=== PATIENT | male | born 1980 | race Caucasian/White ===

== ENCOUNTER 2021-07-27 17:50 | Emergency (ER) | payer MEDICAID, SELFPAY ==
[2021-07-27] VITALS (14 sets, daily range): BP systolic 101–142; BP diastolic 63–81; PULSE 93–117; RESP 14–27; TEMP 37.8; O2SAT 97–100
--- NOTE | ~2021-07-27 | XR_ITS ---
XR chest 2V DATE: 07/27/2021 19:26 INDICATION: Fever. Diabetes. TECHNIQUE: AP and lateral views COMPARISON: None FINDINGS: Normal heart size. No hilar or mediastinal enlargement. No pulmonary infiltrate or consolid ation, pleural effusion or pulmonary vascular congestion or pneumothorax is detected. IMPRESSION: No active cardiopulmonary disease Reviewed, dictated and finalized at location A.
--- NOTE | ~2021-07-27 | XR_ITS ---
XR foot RT min 3V DATE: 07/27/2021 18:39 INDICATION: Pain, erythema of the great toe. Diabetes. TECHNIQUE: 4 views COMPARISON: None FINDINGS: There is osteopenia. No fracture, dislocation or periosteal reaction or bone destruction is evident. Three-phase radionuclide bone scan would be more sensitive for detection of osteomyelitis. IMPRESSION: Osteopenia Reviewed, dictated and finalized at location A. IMPRESSION: Osteopenia
--- NOTE | ~2021-07-27 | XR_ITS ---
XR foot LT min 3V DATE: 07/27/2021 18:39 INDICATION: Pain, swelling of great toe. Diabetes. TECHNIQUE: 4 views COMPARISON: None FINDINGS: There is diffuse osteopenia. There is slight plantar calcaneal enthesopathy and minimal distal Achilles tendon calcification. Anterior tibial and dorsalis pedis artery calcification. No fracture, dislocation, periosteal reaction or bone destruction is evident. If there is clinical concern for osteomyelitis, three-phase radionuclide bone scan would be more sens itive. IMPRESSION: Osteopenia Slight plantar calcaneal enthesopathy Minimal distal Achilles tendon calcification Arterial calcification Reviewed, dictated and finalized at location A.
--- NOTE | 2021-07-27 18:41 | ECG_ITS ---
Measurements Intervals [place] Rate: 112 P: [place]: 0 QRS: -5 QRSD: 100 T: 72 QT: 356 QTc: 487 Interpretive Statements SINUS TACHYCARDIA MINOR NONSPECIFIC ST CHANGE ABNORMAL RHYTHM ECG NO PREVIOUS ECG AVAILABLE FOR COMPARISON Electronically Signed On 07-27-2021 20:31:05 CDT by Brianne Olson M.D.
[2021-07-27] MEDS: SODIUM CHLORIDE 0.9% IV 1,000 ML 999 ML IV CONT ×2 (19:07→21:40)
[2021-07-27 19:28] LABS: Basophils Absolute Auto 0.1 K/mm3 (0.0-0.1); Basophils Percent Auto 0.3 % (0.2-1.2); Eosinophils Percent Auto 0.1 % (0-4.4); Hematocrit 30.2 % (42.0-52.0); Hemoglobin 9.3 g/dL (14.0-18.0); Immature Granulocyte Absolute 0.21 K/mm3 (0.00-0.031); Immature Granulocyte Percent A 0.9 % (0-0.5); Lymphocytes Absolute Auto 1.34 K/mm3 (0.9-3.2); Lymphocytes Percent Auto 5.4 % (18.3-44.2); Mean Corpuscular HGB Conc 30.8 g/dl (32-36); Mean Corpuscular Hemoglobin 30.4 pg (26-34); Mean Corpuscular Volume 98.7 fl (80-100); Mean Platelet Volume 9.9 fl (7.4-10.4); Monocytes Absolute Auto 1.6 K/mm3 (0.1-0.6); Monocytes Percent Auto 6.6 % (2.6-8.5); Neutrophils Absolute Auto 21.4 K/mm3 (1.3-6.7); Neutrophils Percent Auto 86.7 % (45.5-73.1); Platelet Count Result 565 k/mm3 (150-375); Red Blood Count 3.06 M/mm3 (4.6-6.20); Red Cell Distribution Width 12.5 % (11.5-14.5); White Blood Count 24.7 K/mm3 (4.5-10.0)
[2021-07-27 19:40] LABS: INR 1.2; Prothrombin Time 14.6 Seconds (11.1-14.7)
[2021-07-27 19:41] LABS: Partial Thromboplastin Time 39.5 SECONDS (22.3-36.8)
--- NOTE | 2021-07-27 19:47 | ED.EXTPRO ---
HPI - Extremity Problem General Chief complaint: Extremity Problem,Nontraumatic Stated complaint: my toe is purple Time Seen by Provider: 07/27/21 18:31 Source: patient Mode of arrival: ambulatory Limitations: no limitations History of Present Illness HPI Narrative: 40-year-old male with history of diabetes presents today with complaints of right great toe being purple. Patient states it was not like that yesterday at all. Patient states she woke up and it was like this. Bilateral great toes noted with wounds. Right great toe noted to be purple with foul-smelling odor. Streaking noted up right leg. Patient states his blood sugars stay around 180. Unknown last hemoglobin A1c. Patient denies fevers, body aches other than toe pain, chills. [place] here Temporarily. Related Data Allergies Allergy/AdvReac Type Severity Reaction Status Date / Time cefaclor [From [facility]] Allergy Unknown unknown Verified 07/27/21 18:49 Penicillins Allergy Unknown unknown Verified 07/27/21 18:49 Review of Systems Review of Systems: CONSTITUTIONAL: Denies fever, chills, or sweats. EYES: Denies visual changes, redness, or discharge. ENT: Denies rhinorrhea, congestion, sore throat, or otalgia. CARDIOVASCULAR: Denies chest pain, palpitations, or edema. RESPIRATORY: Denies cough or dyspnea. GASTROINTESTINAL: Denies abdominal pain, nausea, vomiting, or diarrhea. GENITOURINARY: Denies dysuria or hematuria. SKIN: Denies rash or itching. MUSCULOSKELETAL: Right big toe purple. Denies back pain, joint pain, or myalgia. NEUROLOGIC: Denies headache, numbness, dizziness, or weakness. PSYCHIATRIC: Denies anxiety or depression. Exam Narrative: GENERAL: Well appearing, well-nourished, and in no acute distress. HEAD: Normocephalic, atraumatic. EYES: PERRLA and EOMI. ENT: Nares clear, no rhinorrhea or epistaxis. Mucous membranes moist. Oropharynx without tonsillar hypertrophy exudate or other lesions. Bilateral TMs pearly ryan nonbulging NECK: Supple. No adenopathy or masses. No carotid bruits or JVD CHEST: Clear to auscultation. No respiratory distress. No wheezes rales or rhonchi HEART: Regular rate and rhythm. No murmur heard. Normal peripheral pulses. ABDOMEN: Soft, nontender, nondistended, normal active bowel sounds. EXTREMITIES: Bilateral pedal pulses +2. Right great toe purple to the base with redness streaking up the leg. Wound noted to bottom of great toe with foul odor. Left great toe with wound noted to bottom of the toe. No odor at this time. No discoloration noted left great toe. No edema. SKIN: Warm, dry, no rash. NEURO: No focal deficits. Alert and oriented x3. PSYCH: Normal mood and affect. Course Course Emergency Course: 40-year-old male presents today with complaints of right great toe that became black overnight. Foot x-ray shows osteopenia. White blood cell count 24,000, hemoglobin A1c greater than 14, blood sugar 897, lactic acid 4.1, hemoglobin 9.3. Dr. Choudhury consulted on patient, ordered, and managed insulin drip. Patient with possible osteomylitis, transfer to [facility] for further management. Consultations Consultation #1: General surery from [place] Dr. Gutierrez consulted. She will consult patient but request to be transferred to the ER. Dr. Badillo from [place] [facility] consulted. Patient to be transferred to [facility]. Date: 07/27/21 Time: 21:45 Vital Signs Vital signs: Vital Signs Temperature 37.8 C H 07/27/21 17:57 Pulse Rate 117 H 07/27/21 17:57 Respiratory Rate 18 07/27/21 17:57 Blood Pressure 101/63 07/27/21 17:57 Pulse Oximetry 100 07/27/21 17:57 Temperature 37.8 C H 07/27/21 17:57 Pulse Rate 96 07/28/21 00:15 Respiratory Rate 0 L 07/28/21 00:15 Blood Pressure 97/63 L 07/28/21 00:01 Pulse Oximetry 100 07/28/21 00:15 Transfer Transfered to: [facility] MDM - Extremity (Nontraumatic) Differential Diagnosis Differential diagnosis: Likely
[2021-07-27 19:51] LABS: Hemoglobin A1C > 14.0 % (<5.7)
[2021-07-27 19:54] LABS: Alanine Aminotransferase 16 U/L (4-50); Albumin Level 3.8 g/dL (3.5-5.1); Alkaline Phosphatase 416 U/L (38-126); Anion Gap 10 mmol/L (8-16); Aspartate Amino Transferase 29 U/L (17-59); Bilirubin,Total 0.4 mg/dL (0.2-1.3); Blood Urea Nitrogen 5 mg/dL (9-20); CRP 20.7 mg/dL (<1.0); Calcium 8.8 mg/dL (8.4-10.2); Carbon Dioxide 32 mmol/L (22-30); Chloride 82 mmol/L (98-107); Estimated CRCL calculation 132 ml/min; Estimated Glomerular Filt Rate > 60; Glucose 897 mg/dL (65-110); Potassium 4.1 mmol/L (3.4-5.0); Sodium 124 mmol/L (137-145)
[2021-07-27 19:55] LABS: Lactic Acid Reflex 4.1 mmol/L (0.7-2.1)
[2021-07-27 20:05] LABS: Platelet Estimate Increased (Adequate); Stomatocytes 2+ (NORMAL)
--- NOTE | 2021-07-27 20:05 | PCRCNOTE ---
An ABG test was ordered for this Pt. the RT explained the reasoning for the test and the patient stated he does not want the treatment done
[2021-07-27 20:07] LABS: Hypochromasia 1+ (NORMAL)
[2021-07-27] MEDS: INSULIN HUMAN REGULAR (*BKC) 100 UNITS/ML 10 UNITS IV PUSH (20:32)
[2021-07-27] MEDS: INSULIN HUMAN REGULAR (*BKC) 100 UNITS in SODIUM CHLORIDE 0.9% IV 99 ML IV CONT (20:32)
[2021-07-27 20:38] LABS: Glucose Point of Care > 500 mg/dl (65-105)
[2021-07-27] MEDS: MORPHINE SULFATE (*CRX) 2 MG/ML INJ IV PUSH ×2 (20:52→22:01)
[2021-07-27 22:00] LABS: Glucose Point of Care > 500 mg/dl (65-105)
[2021-07-27 22:23] LABS: Reflex Lactic Acid Yes or No Add Lactic
[2021-07-27 23:03] LABS: Glucose Point of Care > 500 mg/dl (65-105)
[2021-07-27 23:34] LABS: Lactic Acid 2.8 mmol/L (0.7-2.1)
[2021-07-28] VITALS: PULSE 92; RESP 21; O2SAT 97
[2021-07-28 00:01] VITALS: BP 97/63; PULSE 91; RESP 19; O2SAT 97
[2021-07-28 00:08] LABS: Glucose Point of Care 432 mg/dl (65-105)
[2021-07-28 00:15] VITALS: PULSE 96; RESP 0; O2SAT 100
--- NOTE | 2021-07-28 00:25 | PC.NURSE ---
per myriam camp np please dc insulin drip at time of transfer.
== END 2021-07-28 00:27 | disposition short-term general hospital (02) ==
PROVIDERS: Emergency Provider Nurse Practitioner Family
DX: A41.9 Sepsis, unspecified organism (principal); S91.101A Unspecified open wound of right great toe without damage to nail, initial encounter; R00.0 Tachycardia, unspecified; E11.65 Type 2 diabetes mellitus with hyperglycemia; X58.XXXA Exposure to other specified factors, initial encounter
CPT/HCPCS: 36415; 71046; 73630; 80053; 82948; 83036; 83605; 85025; 85610; 85730; 86140; 87040; 93005; 96365; 96366; 96367; 96368; 96375; 96376; 99285; J0743; J1815; J2270; J3370; J7030